=== PATIENT | female | born 1990 | race Caucasian/White ===

== ENCOUNTER 2019-01-05 09:44 | Emergency (ER) | payer OTHER ==
--- NOTE | 2019-01-05 09:48 | ERPHSYRPT ---
- History of Present Illness Time Seen by Provider: 01/05/19 09:48 Historian: patient Exam Limitations: no limitations Physician History: 28 y/o obese, diabetic white female who has had a cholecystectomy in past presents with generalized abd pain for over one month. she has recently seen a rotor plate washer who has scheduled pt for an upper endoscopy 01/18/19. pt has chronic nausea and occasional loose stools. no vaginal bleeding or abnl discharge. no rectal bleeding. Activities at Onset: none Quality: dullness, pressure Abdominal Pain Onset Location: generalized abdomen Pain Radiation: no radiation Severity of Pain-Max: mild Severity of Pain-Current: mild Modifying Factors: Improves With: nothing Associated Symptoms: nausea Previous symptoms: same symptoms as today, recently seen, recently treated Allergies/Adverse Reactions: No Known Drug Allergies Allergy (Verified 01/05/19 10:09) Home Medications: Metformin HCl 500 mg [Glucophage 500 MG] 500 mg PO BIDWM 01/05/19 [History ] Hx Tetanus, Diphtheria Vaccination/Date Given: Yes Hx Influenza Vaccination/Date Given: No Hx Pneumococcal Vaccination/Date Given: No - Review of Systems Constitutional: No Symptoms Eyes: No Symptoms Ears, Nose, & Throat: No Symptoms Respiratory: No Symptoms Cardiac: No Symptoms Abdominal/Gastrointestinal: Abdominal Pain, Nausea, No Vomiting, No Diarrhea Genitourinary Symptoms: No Symptoms Musculoskeletal: No Symptoms Skin: No Symptoms Neurological: No Symptoms Psychological: No Symptoms Endocrine: No Symptoms Hematologic/Lymphatic: No Symptoms Immunological/Allergic: No Symptoms All Other Systems: Reviewed and Negative - Past Medical History Pertinent Past Medical History: No ENT History: No Pertinent History Cardiac History: No Pertinent History Respiratory History: No Pertinent History Endocrine Medical History: No Pertinent History Musculoskeletal History: No Pertinent History GI Medical History: No Pertinent History History: No Pertinent History Psycho-Social History: No Pertinent History Female Reproductive Disorders: No Pertinent History - Past Surgical History Past Surgical History: Yes Neuro Surgical History: No Pertinent History Cardiac: No Pertinent History Respiratory: No Pertinent History Gastrointestinal: Cholecystectomy Genitourinary: No Pertinent History Musculoskeletal: No Pertinent History Female Surgical History: No Pertinent History Other Surgical History: CHOLECYSTECTOMY ON 04/21 - Social History Smoking Status: Never smoker Exposure to second hand smoke: Yes Drug Use: none Patient Lives Alone: Yes - Nursing Vital Signs Nursing Vital Signs: Initial Vital Signs Temperature 97.8 F 01/05/19 09:56 Pulse Rate 106 H 01/05/19 09:56 Respiratory Rate 16 01/05/19 09:56 Blood Pressure 134/87 01/05/19 09:56 O2 Sat by Pulse Oximetry 95 01/05/19 09:56 Pain Scale Pain Intensity 8 - Physical Exam General Appearance: no apparent distress, alert, anxiety Eye Exam: PERRL/EOMI Ears, Nose, Throat Exam: normal ENT inspection, moist mucous membranes Neck Exam: normal inspection, non-tender, supple, full range of motion Respiratory Exam: normal breath sounds, lungs clear, airway intact, No chest tenderness, No respiratory distress Cardiovascular Exam: regular rate/rhythm, normal heart sounds, normal peripheral pulses Gastrointestinal/Abdomen Exam: soft, normal bowel sounds, tenderness (mild generalized), No distention, No guarding, No rebound Pelvic Exam: not done Rectal Exam: not done Back Exam: normal inspection, normal range of motion, No CVA tenderness, No vertebral tenderness Extremity Exam: normal inspection, normal range of motion, pelvis stable Neurologic Exam: alert, oriented x 3, cooperative, social sciences professor II-XII nml as tested Skin Exam: normal color, warm, dry Lymphatic Exam: No adenopathy SpO2 Interpretation: normal O2 Delivery: Room Air - Course Nursing assessment & vital signs reviewed: Yes Ordered Tests: Active Orders 24 hr Category Date Time Status IV Insertion STAT Care 01/05/19 10:30 Active AMYLASE Stat Lab 01/05/19 10:40 Completed CBC W DIFF Stat Lab 01/05/19 10:40 Completed CMP Stat Lab 01/05/19 10:40 Completed HCG,QUALITATIVE URINE Stat Lab 01/05/19 10:49 Completed LIPASE Stat Lab 01/05/19 10:40 Completed Lactic Acid Stat Lab 01/05/19 10:40 Completed UA W/RFX UR CULTURE Stat Lab 01/05/19 10:49 Completed Medication Summary Discontinued Medications Generic Name Dose Route Start Last Admin Trade Name Freq PRN Reason Stop Dose Admin Ondansetron HCl 4 mg 01/05/19 10:30 01/05/19 10:52 Zofran 4 Mg/2 Ml Vial IV 01/05/19 10:31 4 mg STAT ONE Administration Ondansetron HCl Confirm 01/05/19 10:50 Zofran 4 Mg/2 Ml Vial Administered 01/05/19 10:51 Dose 4 mg .ROUTE .STK-MED ONE Lab/Rad Data: Laboratory Result Diagrams 01/05/19 10:40 01/05/19 10:40 Laboratory Results 01/05/19 01/05/19 01/05/19 Range/Units 10:49 10:49 10:40 WBC (4.0-10.5) K/mm3 RBC (4.1-5.4) M/mm3 Hgb (12.0-16.0) gm/dl Hct (35-47) % MCV (78-100) fl MCH (26-32) pg MCHC (32-36) g/dl RDW (11.5-14.0) % Plt Count (150-450) K/mm3 MPV (6-9.5) fl Gran % (36.0-66.0) % Eos # (Auto) (0-0.5) Absolute Lymphs (auto) (1.0-4.6) Absolute Monos (auto) (0.0-1.3) Lymphocytes % (24.0-44.0) % Monocytes % (0.0-12.0) % Eosinophils % (0.00-5.0) % Basophils % (0.0-0.4) % Absolute Granulocytes (1.4-6.9) Basophils # (0-0.4) Sodium 138 (137-145) mmol/L Potassium 4.3 (3.5-5.1) mmol/L Chloride 106 (98-107) mmol/L Carbon Dioxide 26 (22-30) mmol/L Anion Gap 11.1 (5-15) MEQ/L BUN 12 (7-17) mg/dL Creatinine 0.80 (0.52-1.04) mg/dL Estimated GFR > 60.0 ML/MIN Glucose 88 (74-106) mg/dL Lactic Acid (0.4-2.0) Calcium 8.9 (8.4-10.2) mg/dL Total Bilirubin 0.40 (0.2-1.3) mg/dL AST 35 (14-36) U/L ALT 21 (0-35) U/L Alkaline Phosphatase 47 (38-126) U/L Serum Total Protein 6.6 (6.3-8.2) g/dL Albumin 3.5 (3.5-5.0) g/dL Amylase 71 (30-110) U/L Lipase 66 (23-300) U/L Urine Color YELLOW (YELLOW) Urine Appearance TURBID (CLEAR) Urine pH 5.0 (5-6) Ur Specific [place] 1.027 (1.005-1.025) Urine Protein NEGATIVE (Negative) Urine Ketones NEGATIVE (NEGATIVE) Urine Blood SMALL (0-5) Salomon/ul Urine Nitrite NEGATIVE (NEGATIVE) Urine Bilirubin NEGATIVE (NEGATIVE) Urine Urobilinogen NEGATIVE (0-1) mg/dL Ur Leukocyte Esterase NEGATIVE (NEGATIVE) Urine WBC (Auto) 6-10 (0-5) /HPF Urine RBC (Auto) 3-5 (0-2) /HPF U Epithel Cells (Auto) RARE (FEW) /HPF Urine Bacteria (Auto) FEW (NEGATIVE) /HPF Urine Mucus (Auto) MODERATE (NEGATIVE) /HPF Urine Culture Reflexed NO (NO) Urine Glucose NEGATIVE (NEGATIVE) mg/dL Urine HCG, Qual NEGATIVE (Negative) 01/05/19 01/05/19 Range/Units 10:40 10:40 WBC 8.8 (4.0-10.5) K/mm3 RBC 4.37 (4.1-5.4) M/mm3 Hgb 13.0 (12.0-16.0) gm/dl Hct 39.3 (35-47) % MCV 89.9 (78-100) fl MCH 29.7 (26-32) pg MCHC 33.1 (32-36) g/dl RDW 12.4 (11.5-14.0) % Plt Count 235 (150-450) K/mm3 MPV 10.3 H (6-9.5) fl Gran % 63.3 (36.0-66.0) % Eos # (Auto) 0.08 (0-0.5) Absolute Lymphs (auto) 2.42 (1.0-4.6) Absolute Monos (auto) 0.71 (0.0-1.3) Lymphocytes % 27.5 (24.0-44.0) % Monocytes % 8.1 (0.0-12.0) % Eosinophils % 0.9 (0.00-5.0) % Basophils % 0.2 (0.0-0.4) % Absolute Granulocytes 5.56 (1.4-6.9) Basophils # 0.02 (0-0.4) Sodium (137-145) mmol/L Potassium (3.5-5.1) mmol/L Chloride (98-107) mmol/L Carbon Dioxide (22-30) mmol/L Anion Gap (5-15) MEQ/L BUN (7-17) mg/dL Creatinine (0.52-1.04) mg/dL Estimated GFR ML/MIN Glucose (74-106) mg/dL Lactic Acid 0.7 (0.4-2.0) Calcium (8.4-10.2) mg/dL Total Bilirubin (0.2-1.3) mg/dL AST (14-36) U/L ALT (0-35) U/L Alkaline Phosphatase (38-126) U/L Serum Total Protein (6.3-8.2) g/dL Albumin (3.5-5.0) g/dL Amylase (30-110) U/L Lipase (23-300) U/L Urine Color (YELLOW) Urine Appearance (CLEAR) Urine pH (5-6) Ur Specific [place] (1.005-1.025) Urine Protein (Negative) Urine Ketones (NEGATIVE) Urine Blood (0-5) Salomon/ul Urine Nitrite (NEGATIVE) Urine Bilirubin (NEGATIVE) Urine Urobilinogen (0-1) mg/dL Ur Leukocyte Esterase (NEGATIVE) Urine WBC (Auto) (0-5) /HPF Urine RBC (Auto) (0-2) /HPF U Epithel Cells (Auto) (FEW) /HPF Urine Bacteria (Auto) (NEGATIVE) /HPF Urine Mucus (Auto) (NEGATIVE) /HPF Urine Culture Reflexed (NO) Urine Glucose (NEGATIVE) mg/dL Urine HCG, Qual (Negative) - Progress Progress: unchanged Counseled pt/family regarding: lab results, diagnosis, need for follow-up - Departure Departure Disposition: Home Clinical Impression: Abdominal pain Condition: Stable Critical Care Time: No Referrals: MADDY SHAH NP [Primary Care Provider] - Additional Instructions: follow up with primary doctor for further management. keep your gastroenterology appointment
[2019-01-05] MEDS ORDERED: Zofran 4 MG/2 ML VIAL IV ONE (10:30)
[2019-01-05] MEDS ORDERED: Zofran 4 MG/2 ML VIAL ONE (10:50)
[2019-01-05 10:58] LABS: BASOPHIL % 0.2 % (0.0-0.4); Basophil (Absolute #) 0.02 (0-0.4); Eosinophil % 0.9 % (0.00-5.0); Eosinophil (Absolute #) 0.08 (0-0.5); Granulocyte Absolute (ANC) 5.56 (1.4-6.9); Granulocytes % 63.3 % (36.0-66.0); Hematocrit 39.3 % (35-47); Lymphocyte (Absolute #) 2.42 (1.0-4.6); Lymphocytes % 27.5 % (24.0-44.0); Mean Cell Volume 89.9 fl (78-100); Mean Corpuscular Hemoglobin 29.7 pg (26-32); Mean Corpuscular Hgb Concent. 33.1 g/dl (32-36); Mean Platelet Volume 10.3 fl (6-9.5); Monocyte (Absolute #) 0.71 (0.0-1.3); Monocytes % 8.1 % (0.0-12.0); Platelet Count 235 K/mm3 (150-450); Red Blood Count 4.37 M/mm3 (4.1-5.4); Red Cell Distribution Width 12.4 % (11.5-14.0); White Blood Count 8.8 K/mm3 (4.0-10.5)
[2019-01-05 10:59] LABS: Appearance TURBID (CLEAR); Bacteria FEW /HPF (NEGATIVE); Bilirubin NEGATIVE (NEGATIVE); Blood SMALL Ery/ul (0-5); Epithelial Cells RARE /HPF (FEW); Glucose NEGATIVE (NEGATIVE); Ketones NEGATIVE (NEGATIVE); Leukocyte Esterase NEGATIVE (NEGATIVE); Mucus MODERATE /HPF (NEGATIVE); Nitrite NEGATIVE (NEGATIVE); Protein,Urine Dip NEGATIVE (Negative); Specific Gravity 1.027 (1.005-1.025); Urobilinogen NEGATIVE mg/dL (0-1)
[2019-01-05 11:06] LABS: ALBUMIN 3.5 g/dL (3.5-5.0); ALKALINE PHOSPHATASE 47 U/L (38-126); AMYLASE 71 U/L (30-110); ANION GAP 11.1 MEQ/L (5-15); BLOOD UREA NITROGEN 12 mg/dL (7-17); CHLORIDE 106 mmol/L (98-107); Calcium 8.9 mg/dL (8.4-10.2); Carbon Dioxide 26 mmol/L (22-30); Glucose 88 mg/dL (74-106); LIPASE 66 U/L (23-300); Potassium 4.3 mmol/L (3.5-5.1); SGOT/AST 35 U/L (14-36); SGPT/ALT 21 U/L (0-35); SODIUM 138 mmol/L (137-145); Total Protein 6.6 g/dL (6.3-8.2)
[2019-01-05 11:44] VITALS: BP 131/82; PULSE 101; O2SAT 97
== END 2019-01-05 11:43 | disposition home or self-care (01) ==
LOC: ED 09:44
DX: R10.9 Unspecified abdominal pain (principal)
CPT/HCPCS: 36000; 36415; 80053; 81001; 82150; 83605; 83690; 84703; 85025; 96374; 99284; J2405

== ENCOUNTER 2019-10-12 20:33 | Emergency (ER) | payer OTHER ==
--- NOTE | 2019-10-12 21:13 | ERPHSYRPT ---
- History of Present Illness Time Seen by Provider: 10/12/19 21:00 Source: patient Exam Limitations: no limitations Patient Subjective Stated Complaint: Patient has 2 red dime size raised areas to left forearm. Triage Nursing Assessment: . Physician History: Patient is a 28-year-old female presents to our ED with concerns of an insect bite to the volar aspect of her left forearm. Patient awoke this morning to find 2 dime size on her left arm. At the center of the welt is a spot that appears to be a bite adryan. It is unclear whether she was bitten by an insect however patient believes that it may have been a spider. Patient has minimal pain. However the area is raised erythematous and tender to palpation. No other injuries reported. No fever. Timing/Duration: today Quality: other Severity: mild Possible Causes: insect bite Allergies/Adverse Reactions: No Known Drug Allergies Allergy (Verified 10/12/19 21:08) Home Medications: Metformin HCl 500 mg [Glucophage 500 MG] 500 mg PO BIDWM 01/05/19 [History ] Hx Tetanus, Diphtheria Vaccination/Date Given: No Hx Influenza Vaccination/Date Given: Yes Hx Pneumococcal Vaccination/Date Given: No Immunizations Up to Date: Yes - Review of Systems Constitutional: No Fever, No Chills Eyes: No Symptoms Ears, Nose, & Throat: No Symptoms Respiratory: No Cough, No Dyspnea Cardiac: No Chest Pain, No Edema, No Syncope Abdominal/Gastrointestinal: No Abdominal Pain, No Nausea, No Vomiting, No Diarrhea Genitourinary Symptoms: No Dysuria Musculoskeletal: No Back Pain, No Neck Pain Skin: Cellulitis, Induration, No Rash Neurological: No Dizziness, No Focal Weakness, No Sensory Changes Psychological: No Symptoms Endocrine: No Symptoms All Other Systems: Reviewed and Negative - Past Medical History Pertinent Past Medical History: No Neurological History: No Pertinent History ENT History: No Pertinent History Cardiac History: No Pertinent History Respiratory History: No Pertinent History Endocrine Medical History: No Pertinent History Musculoskeletal History: No Pertinent History GI Medical History: No Pertinent History History: No Pertinent History Psycho-Social History: No Pertinent History Female Reproductive Disorders: No Pertinent History - Past Surgical History Past Surgical History: Yes Neuro Surgical History: No Pertinent History Cardiac: No Pertinent History Respiratory: No Pertinent History Gastrointestinal: Cholecystectomy Genitourinary: No Pertinent History Musculoskeletal: No Pertinent History Female Surgical History: No Pertinent History Other Surgical History: CHOLECYSTECTOMY ON 04/21 - Social History Smoking Status: Never smoker Exposure to second hand smoke: No Drug Use: none Patient Lives Alone: No - Female History Hx Now: No - Nursing Vital Signs Nursing Vital Signs: Initial Vital Signs Temperature 96.5 F 10/12/19 20:58 Pulse Rate 93 H 10/12/19 20:58 Respiratory Rate 16 10/12/19 20:58 Blood Pressure 138/76 10/12/19 20:58 O2 Sat by Pulse Oximetry 95 10/12/19 20:58 Pain Scale Pain Intensity 4 - Physical Exam General Appearance: no apparent distress, alert Eye Exam: PERRL/EOMI, eyes nml inspection Ears, Nose, Throat Exam: normal ENT inspection, pharynx normal, moist mucous membranes Neck Exam: normal inspection, non-tender, supple, full range of motion Respiratory Exam: normal breath sounds, lungs clear, No respiratory distress Cardiovascular Exam: regular rate/rhythm, normal heart sounds Gastrointestinal/Abdomen Exam: soft, mass, No tenderness Back Exam: normal inspection, normal range of motion, No CVA tenderness, No vertebral tenderness Extremity Exam: normal inspection, normal range of motion Neurologic Exam: alert, oriented x 3, cooperative, normal mood/affect, sensation nml, No motor deficits Skin Exam: normal color, warm, dry, other (Patient has 2 dime size indurated raised tender lesions that are warm to touch. No associated lymphangitis. No axillary lymphadenopathy. No drainage. The extremity is neurovascular intact distally. Compartments are soft.) SpO2 Interpretation: normal SpO2: 95 O2 Delivery: Room Air - Progress Progress: improved Progress Note: 10/12/19 21:28 Wound was cleaned. Bactrim DS prescribed and transmitted to patient's pharmacy of choice. Counseled pt/family regarding: diagnosis, need for follow-up - Departure Departure Disposition: Home Clinical Impression: Insect bite, Cellulitis Condition: Good Critical Care Time: No Referrals: MADDY SHAH NP [Primary Care Provider] - Instructions: Animal Bites (DC), Insect Bites and Stings (DC) Additional Instructions: Discharge/Care Plan JOANNE WOOD was seen on 10/12/19 in the Emergency Room. The patient was counseled regarding Diagnosis,Lab results, Imaging studies, need for follow up and when to return to the Emergency Room. Prescriptions given: Discharge Note I have spoken with the patient and/or caregivers. I have explained the patient' s condition, diagnosis and treatment plan based on the information available to me at this time. I have answered the patient's and/or caregiver's questions and addressed any concerns. The patient and/or caregivers have as good understanding of the patient's diagnosis, condition and treatment plan as can be expected at this point. The vital signs have been stable. The patient's condition is stable and appropriate for discharge from the emergency department. The patient will pursue further outpatient evaluation with the primary care physician or other designated or consulting physician as outlined in the discharge instructions. The patient and/or caregivers are agreeable to this plan of care and follow-up instructions have been explained in detail. The patient and/or caregivers have received these instruction. The patient/and or caregivers are aware that any significant change in condition or worsening of symptoms should prompt an immediate return to this or the closest emergency department or call 911. Prescriptions: Smz/Tmp Ds Tablet [Bactrim Ds Tablet] 1 udtab PO BID #14 tablet
[2019-10-12 21:33] VITALS: BP 122/73; PULSE 67; O2SAT 99
== END 2019-10-12 21:33 | disposition home or self-care (01) ==
LOC: ED 20:33
DX: S50.862A Insect bite (nonvenomous) of left forearm, initial encounter (principal); L03.114 Cellulitis of left upper limb; W57.XXXA Bitten or stung by nonvenomous insect and other nonvenomous arthropods, initial encounter
CPT/HCPCS: 99283

== ENCOUNTER 2020-05-21 07:21 | Day surgery (SDC) | payer OTHER ==
[2020-05-21] MEDS ORDERED: Lactated Ringers 1,000 ML IV ONE ×2 (07:44→08:11)
[2020-05-21] MEDS ORDERED: CEFAZOLIN 2 GM-D5W BAG** 2 GM/50 ML ML IV ONE (07:44)
[2020-05-21] MEDS ORDERED: Lactated Ringers 1,000 ML IV SCH (08:00)
[2020-05-21] MEDS ORDERED: CEFAZOLIN 2 GM-D5W BAG** 2 GM/50 ML ML IV SCH (08:00)
[2020-05-21] MEDS ORDERED: Sensorcaine 0.25% 10 ML ONE (08:11)
[2020-05-21] MEDS ORDERED: Zemuron 100 MG/10 ML ONE (08:26)
[2020-05-21] MEDS ORDERED: SUBLIMAZE 100 MCG/2 ML ONE ×2 (08:26→10:55)
[2020-05-21] MEDS ORDERED: Versed 2 MG/2 ML Injection ONE (08:26)
[2020-05-21] MEDS ORDERED: DIPRIVAN 200 MG/20 ML IV ONE (08:26)
[2020-05-21] MEDS ORDERED: Zofran 4 MG/2 ML VIAL ONE (10:10)
[2020-05-21] MEDS ORDERED: BRIDION 200MG/2ML IV ONE (10:12)
[2020-05-21] MEDS ORDERED: Compazine 10 MG/2 ML ONE (10:38)
[2020-05-21] MEDS ORDERED: TORAdol 30 mg Injection ONE (10:50)
[2020-05-21 12:17] VITALS: BP 110/60; PULSE 72; O2SAT 98
[2020-05-21 15:17] LABS: Appearance CLEAR (CLEAR); Bilirubin NEGATIVE (NEGATIVE); Blood SMALL Ery/ul (0-5); Epithelial Cells RARE /HPF (FEW); Glucose NEGATIVE (NEGATIVE); Ketones NEGATIVE (NEGATIVE); Leukocyte Esterase NEGATIVE (NEGATIVE); Mucus SLIGHT /HPF (NEGATIVE); Nitrite NEGATIVE (NEGATIVE); Protein,Urine Dip NEGATIVE (Negative); Specific Gravity 1.019 (1.005-1.025); Urobilinogen NEGATIVE mg/dL (0-1)
--- NOTE | 2020-05-22 08:12 | OP ---
SURGERY DATE/TIME: 05/21/2020 7839 PREOPERATIVE DIAGNOSES: 1) Multiparity desiring tubal sterilization. 2) Retained intrauterine device. POSTOPERATIVE DIAGNOSES: 1) Multiparity desiring tubal sterilization. 2) Retained intrauterine device. PROCEDURES: 1) Removal of intrauterine device, Mirena. 2) Laparoscopic tubal sterilization via Falope ring application. SURGEON: Chris Acevedo D.O. LAND CONSERVATION SPECIALIST: Doretha Kenny Homicide Detective. ANESTHESIA: General. ESTIMATED BLOOD LOSS: Minimal. COMPLICATIONS: None. INDICATIONS: The risks, benefits, indications and alternatives of the procedure were reviewed with the patient prior to procedure. The patient understood the risk of infection, bleeding, bowel injury, bladder injury, ureteral injury, uterine perforation as well as pelvic infection, thrombophilia disorder that may be associated with this procedure however desires to have this procedure as a possible means to alleviate her current medical condition. All other forms of control were discussed with the patient prior to the procedure. However, she declines any other form of control and desires to have permanent sterilization. DESCRIPTION OF PROCEDURE AND FINDINGS: From this point the patient is taken to the operating room, given general sedation, placed in a dorsal lithotomy position. Prepped and draped in the usual sterile fashion. A weighted speculum is then placed in the patient's vagina and the anterior lip of the cervix was grasped with a single tooth tenaculum. From this point ring forceps was used to grasp the Mirena string which was and removed without complication. The uterine manipulator was then introduced in through the endocervical canal as means to manipulate the uterus. Attention was then turned to the patient's abdomen where a 5 mm skin incision was made approximately 2 cm above the umbilical fold where a 5 mm trocar and sleeve were advanced under direct visualization. Pneumoperitoneum was placed with 4 liters of CO2 gas. From this point an additional incision was made 2 cm above the symphysis pubis where an 8 mm trocar and sleeve were advanced under direct visualization as well. The visualization in the pelvic region appeared to be within normal limits with no gross abnormalities that were noted. From this point the uterus was then elevated with the uterine manipulator and Falope ring applicator was then applied to the left fallopian tube approximately 3 to 4 cm away from the cornual region where the Falope ring was then grasped and the Falope ring applicator was applied and the ring was placed on the fallopian tube without complication. However there was minimal bleeding that was noted after grasping the tube. However, the ring was placed in excellent position. From this point the Falope ring applicator was reloaded and the same procedure was performed on the right fallopian tube on the isthmic region where it was grasped and the ring was placed on the tube in excellent position. Bipolar bone puller was used to coagulate the minimal bleeding that was on the left tube and was done so without complication. There were no gross abnormalities located within the abdominal region and all instruments were then removed from the patient's abdominal region. The gas was removed. The incisions were closed with 4-0 Monocryl suture. The patient was then taken out of the dorsal lithotomy position, was taken out of anesthesia and was then taken to the recovery room in stable condition. All instruments and laps were accounted for x2.
== END 2020-05-21 12:15 | disposition home or self-care (01) ==
LOC: SDC 07:21
PROVIDERS: ATTEND Obstetrics & Gynecology
DX: Z30.2 Encounter for sterilization (principal); Z30.432 Encounter for removal of intrauterine contraceptive device; E11.9 Type 2 diabetes mellitus without complications; I10 Essential (primary) hypertension; Z79.899 Other long term (current) drug therapy
CPT/HCPCS: 58301; 58671; 81001; 82962; 84703; 87086; J0690; J1885; J2250; J2405; J2704; J3010

== ENCOUNTER 2022-06-30 07:25 | Day surgery (SDC) | payer OTHER ==
[2022-06-30] MEDS ORDERED: Lactated Ringers 1,000 ML IV SCH (08:00)
[2022-06-30] MEDS ORDERED: Lactated Ringers 1,000 ML IV ONE (08:15)
[2022-06-30] MEDS ORDERED: CEFAZOLIN 2 GM-D5W BAG** 2 GM/50 ML ML IV SCH (08:30)
[2022-06-30] MEDS ORDERED: Xylocaine-Mpf 2% 5 Ml Vial ONE (10:16)
[2022-06-30] MEDS ORDERED: Decadron 4 MG INJ ONE (10:16)
[2022-06-30] MEDS ORDERED: DIPRIVAN 200 MG/20 ML IV ONE (10:16)
[2022-06-30] MEDS ORDERED: Zofran 4 MG/2 ML VIAL ONE (10:16)
[2022-06-30] MEDS ORDERED: Versed 2 MG/2 ML Injection ONE (10:16)
[2022-06-30] MEDS ORDERED: SUBLIMAZE 100 MCG/2 ML ONE (10:16)
[2022-06-30 11:57] VITALS: BP 125/94; PULSE 79; O2SAT 99
--- NOTE | 2022-07-01 08:32 | OP ---
SURGERY DATE/TIME: 06/30/2022 1020 PREOPERATIVE DIAGNOSIS: Menorrhagia. POSTOPERATIVE DIAGNOSIS: Menorrhagia. PROCEDURE: Hysteroscopy D&C with NovaSure ablation. SURGEON: Chris Acevedo D.O. ENERGY SALES BROKER: Ledy Akhtar surgical aide. ANESTHESIA: General. ESTIMATED BLOOD LOSS: Minimal. COMPLICATIONS: None. INDICATIONS: The risks, benefits, indications and alternatives of the procedure were reviewed with the patient prior to procedure. The patient understood the risk of infection, bleeding, bowel injury, bladder injury, ureteral injury, uterine perforation, pelvic infection, thromboembolic disorder associated with the surgery and desires to have this surgery as a possible means to alleviate her current medical condition. DESCRIPTION OF PROCEDURE AND FINDINGS: At this point the patient is taken to the operating room, given general sedation, placed in dorsal lithotomy position, prepped and draped in the usual sterile fashion. A weighted speculum is then placed in the patient's vagina and the anterior lip of the cervix grasped with a single tooth tenaculum. Endocervical dilators were advanced through the endocervical canal as a means to dilate the cervix. The uterus was sounded to approximately 8 cm. From this point, a 5 mm hysteroscope was then placed into the fundus of the uterus where visualization of the endometrial lining appeared to be within normal limits with no gross abnormalities that were noted. From this point, the hysteroscope was removed. The curette was then placed into the fundus of the uterus and curettage was performed in all quadrants of the uterus retrieving a mild to moderate amount of tissue. From this point, the curette was then removed. The NovaSure was then introduced through the endocervical canal where it was taken towards the fundal region, retracted approximately 1 cm with a length of 6 cm and a width was engaged at 3.2 cm. After complete engagement, the machine was turned on for an ablative time of 42 seconds. After complete ablation, the NovaSure instrument was then disengaged and was removed from the uterine cavity without complication. From this point, all instruments were removed from the patient's vaginal region. The patient was then taken out of the dorsal lithotomy position, was then taken out of anesthesia and was then taken to the recovery room in stable condition. All instruments and laps were accounted for x2.
== END 2022-06-30 12:01 | disposition home or self-care (01) ==
LOC: SDC 07:25
PROVIDERS: ATTEND Obstetrics & Gynecology
DX: N92.0 Excessive and frequent menstruation with regular cycle (principal); R73.03 Prediabetes
CPT/HCPCS: 81025; 82947; J0690; J1100; J2250; J2405; J2704; J3010

== ENCOUNTER 2023-03-23 09:04 | Observation (INO) | payer OTHER ==
[2023-03-23] MEDS ORDERED: CEFAZOLIN 2 GM-D5W BAG** 2 GM/50 ML ML IV SCH (09:30)
[2023-03-23] MEDS ORDERED: CEFAZOLIN 2 GM-D5W BAG** 2 GM/50 ML ML IV ONE (09:43)
[2023-03-23] MEDS ORDERED: Lactated Ringers 1,000 ML IV ONE ×3 (09:43→13:12)
[2023-03-23] MEDS ORDERED: Lactated Ringers 1,000 ML IV SCH (10:00)
[2023-03-23 10:31] LABS: Hematocrit 38.4 % (35-47); Hemoglobin 12.6 g/dL (12.0-16.0); Mean Cell Volume 91.6 fL (78-100); Mean Corpuscular Hemoglobin 30.1 pg (26-32); Mean Corpuscular Hgb Concent. 32.8 g/dL (32-36); Mean Platelet Volume 10.3 fL (7.5-11.0); Platelet Count 244 x10^3/uL (150-450); Red Blood Count 4.19 x10^6/uL (4.1-5.4); White Blood Count 7.5 x10^3/uL (4.0-10.5)
[2023-03-23 10:47] LABS: ALBUMIN 3.8 g/dL (3.5-5.0); ALKALINE PHOSPHATASE 58 U/L (38-126); ANION GAP 13.2 MEQ/L (5-15); BLOOD UREA NITROGEN 16 mg/dL (7-17); CHLORIDE 105 mmol/L (98-107); Calcium 8.8 mg/dL (8.4-10.2); Carbon Dioxide 24 mmol/L (22-30); Creatinine 1 0.77 mg/dL (0.52-1.04); EST GLOMERULAR FILTRATION RATE > 60.0 ML/MIN; Glucose 81 mg/dL (74-106); Potassium 4.3 mmol/L (3.5-5.1); SGOT/AST 24 U/L (14-36); SGPT/ALT 19 U/L (0-35); SODIUM 138 mmol/L (137-145); Total Protein 7.2 g/dL (6.3-8.2)
[2023-03-23] MEDS ORDERED: SUBLIMAZE 100 MCG/2 ML ONE (10:59)
[2023-03-23] MEDS ORDERED: Zemuron 100 MG/10 ML ONE (10:59)
[2023-03-23] MEDS ORDERED: DIPRIVAN 200 MG/20 ML IV ONE (10:59)
[2023-03-23] MEDS ORDERED: Versed 2 MG/2 ML Injection ONE (10:59)
[2023-03-23 11:14] LABS: ABO TYPING B; Antibody Screen NEGATIVE (NEGATIVE); RH TYPING POSITIVE
[2023-03-23] MEDS ORDERED: Sensorcaine 0.25% 10 ML ONE (11:18)
[2023-03-23] MEDS ORDERED: Astramorph-Pf 5 MG/10 ML ONE (11:23)
[2023-03-23 11:30] LABS: HCG SERUM TEST NEGATIVE (NEGATIVE)
[2023-03-23] MEDS ORDERED: Decadron 4 MG INJ ONE (12:22)
[2023-03-23] MEDS ORDERED: PHENYLEPHRINE HCL ONE (12:48)
[2023-03-23] MEDS ORDERED: Marcaine 0.5%/Epinephrine 10 ML ONE ×2 (12:59)
[2023-03-23] MEDS ORDERED: TORAdol 30 mg Injection ONE (13:01)
[2023-03-23] MEDS ORDERED: BRIDION 200MG/2ML IV ONE (13:01)
[2023-03-23] MEDS ORDERED: Zofran 4 MG/2 ML VIAL ONE (13:01)
[2023-03-23 14:46] LABS: Appearance Clear (Clear); Bacteria None Seen /HPF (None Seen); Bilirubin Negative (Negative); Blood Negative (Negative); Epithelial Cells Rare /HPF (None Seen); Glucose, Urine Negative (Negative); Hyaline Casts NONE SEEN /LPF (0-2); Ketones Trace (Negative); Leukocyte Esterase Negative (Negative); Nitrite Negative (Negative); Ph 7.5 (4.6-8.0); Protein,Urine Dip Negative (Negative); RBC 0-2 /HPF (0-5); Urobilinogen 0.2 mg/dL (0.2); WBC 0-2 /HPF (0-5)
[2023-03-23] MEDS ORDERED: Zofran 4 MG/2 ML VIAL IV PRN ×2 (15:05→15:15)
[2023-03-23] MEDS ORDERED: TORAdol 30 mg Injection IV PRN (15:07)
[2023-03-23] MEDS ORDERED: MORPHINE SULFATE 2 MG INJ IV PRN (15:15)
[2023-03-23] MEDS ORDERED: CLARITIN 10 MG PO PRN (15:15)
[2023-03-23] MEDS ORDERED: Narcan 0.4 MG/ML IV PRN (15:15)
[2023-03-23] MEDS ORDERED: DEMEROL 50 MG IV PRN (15:15)
[2023-03-23] MEDS ORDERED: Nubain 10 MG/ML IV PRN (15:15)
[2023-03-23] MEDS ORDERED: NON-FORMULARY ITEM (Tirzepatide [Mounjaro] 5 MG/0.5 ML Pen.Injctr) SQ SCH (15:15)
[2023-03-23] MEDS ORDERED: PERCOCET TABLET 5/325MG PO PRN (15:15)
[2023-03-23] MEDS ORDERED: Sodium Chloride 0.9% 10 ML FLUSH Syringe IJ PRN (15:15)
[2023-03-23] MEDS ORDERED: BENADRYL 50 MG/ML IV PRN (15:15)
[2023-03-23] MEDS ORDERED: MEDICATION INTERVENTION MC SCH (15:30)
[2023-03-23] MEDS: Prozac 20 MG PO SCH (16:40)
[2023-03-23] MEDS: Reglan 10 MG/2 ML IV SCH ×2 (16:40→21:13)
[2023-03-23] MEDS: Mylicon 80MG PO SCH ×2 (16:40→21:12)
[2023-03-23] MEDS: Lactated Ringers 1,000 ML IV SCH (18:12)
[2023-03-23] MEDS: CEFAZOLIN 2 GM-D5W BAG** 2 GM/50 ML ML IV SCH (18:12)
[2023-03-23 18:31] LABS: Hemoglobin 12.3 g/dL (12.0-16.0); Mean Cell Volume 93.1 fL (78-100); Mean Corpuscular Hemoglobin 30.1 pg (26-32); Mean Corpuscular Hgb Concent. 32.4 g/dL (32-36); Mean Platelet Volume 9.8 fL (7.5-11.0); Platelet Count 232 x10^3/uL (150-450); Red Blood Count 4.08 x10^6/uL (4.1-5.4); Red Cell Distribution Width 11.9 % (11.5-14.0); White Blood Count 15.6 x10^3/uL (4.0-10.5)
[2023-03-23] MEDS: Docusate Sodium 100 MG PO SCH (21:13)
[2023-03-24] MEDS: Lactated Ringers 1,000 ML IV SCH (01:22)
[2023-03-24] MEDS: CEFAZOLIN 2 GM-D5W BAG** 2 GM/50 ML ML IV SCH (01:23)
[2023-03-24 04:53] LABS: Hematocrit 36.8 % (35-47); Hemoglobin 11.8 g/dL (12.0-16.0); Mean Cell Volume 94.4 fL (78-100); Mean Corpuscular Hemoglobin 30.3 pg (26-32); Mean Corpuscular Hgb Concent. 32.1 g/dL (32-36); Mean Platelet Volume 10.3 fL (7.5-11.0); Platelet Count 244 x10^3/uL (150-450); Red Cell Distribution Width 12.1 % (11.5-14.0); White Blood Count 16.7 x10^3/uL (4.0-10.5)
[2023-03-24 04:54] LABS: ALBUMIN 3.5 g/dL (3.5-5.0); ALKALINE PHOSPHATASE 70 U/L (38-126); ANION GAP 9.5 MEQ/L (5-15); BLOOD UREA NITROGEN 16 mg/dL (7-17); CHLORIDE 105 mmol/L (98-107); Calcium 8.6 mg/dL (8.4-10.2); Carbon Dioxide 27 mmol/L (22-30); EST GLOMERULAR FILTRATION RATE > 60.0 ML/MIN; Glucose 107 mg/dL (74-106); Potassium 4.3 mmol/L (3.5-5.1); SGOT/AST 25 U/L (14-36); SGPT/ALT 19 U/L (0-35); SODIUM 137 mmol/L (137-145)
[2023-03-24] MEDS: Reglan 10 MG/2 ML IV SCH (05:40)
[2023-03-24] MEDS: Mylicon 80MG PO SCH (05:40)
[2023-03-24 07:21] VITALS: BP 111/56; PULSE 87; RESP 16; TEMP 98.1; O2SAT 96
--- NOTE | 2023-03-24 07:31 | PCM.NOTE ---
Date and Time: 03/24/23728 Subjective Assessment: pod 1 sp laparoscopic supracervical hysterectomy pt resting in bed however states able to ambulate and tolerate diet with minimal discomfort. vss afebrile abd; soft incision c/d/intact ext; no clubbing cyanosis or edema hgb; 11.8 a/p sp laparoscopic supracervical hysterctomy dc home today should fu in office in 2 wks OBJECTIVE DATA Vital Signs: Vital Signs - 24 hr Temp Pulse Resp BP Pulse Ox 03/24/23 07:20 98.1 F 87 16 111/56 96 03/24/23 03:51 97.7 F 76 17 111/78 93 L 03/24/23 00:00 97.7 F 76 18 107/65 95 03/23/23 20:00 98.1 F 73 17 112/63 95 03/23/23 16:00 97.5 F 93 H 18 134/71 95 03/23/23 14:48 102 H 18 126/77 99 03/23/23 14:30 97.0 F 94 H 18 119/75 93 L 03/23/23 10:16 97.3 F 87 16 120/86 99 03/23/23 09:44 97.3 F 87 16 120/86 99 Pain Assessment - Last Documented Pain Intensity 0 Intake and Output: Intake & Output 03/21/23 03/22/23 03/23/23 03/24/23 11:59 11:59 11:59 11:59 Intake Total 995 Output Total 1150 Balance -155 Weight 92.5 kg 94.7 kg Lab Results: Lab Results-Last 24 Hours 03/23/23 03/23/23 03/23/23 Range/Units 09:58 09:58 09:58 WBC 7.5 (4.0-10.5) x10^3/uL RBC 4.19 (4.1-5.4) x10^6/uL Hgb 12.6 (12.0-16.0) g/dL Hct 38.4 (35-47) % MCV 91.6 (78-100) fL MCH 30.1 (26-32) pg MCHC 32.8 (32-36) g/dL RDW 12.0 (11.5-14.0) % Plt Count 244 (150-450) x10^3/uL MPV 10.3 (7.5-11.0) fL Sodium 138 (137-145) mmol/L Potassium 4.3 (3.5-5.1) mmol/L Chloride 105 (98-107) mmol/L Carbon Dioxide 24 (22-30) mmol/L Anion Gap 13.2 (5-15) MEQ/L BUN 16 (7-17) mg/dL Creatinine 0.77 (0.52-1.04) mg/dL Estimated GFR > 60.0 ML/MIN Glucose 81 (74-106) mg/dL Calcium 8.8 (8.4-10.2) mg/dL Total Bilirubin 0.50 (0.2-1.3) mg/dL AST 24 (14-36) U/L ALT 19 (0-35) U/L Alkaline Phosphatase 58 (38-126) U/L Serum Total Protein 7.2 (6.3-8.2) g/dL Albumin 3.8 (3.5-5.0) g/dL Serum HCG, Qual (NEGATIVE) Urine Color (Yellow) Urine Appearance (Clear) Urine pH (4.6-8.0) Ur Specific [place] (1.005-1.030) Urine Protein (Negative) Urine Glucose (UA) (Negative) mg/dL Urine Ketones (Negative) Urine Blood (Negative) Urine Nitrite (Negative) Urine Bilirubin (Negative) Urine Urobilinogen (0.2) mg/dL Ur Leukocyte Esterase (Negative) U Hyaline Cast (Auto) (0-2) /LPF Urine Microscopic RBC (0-5) /HPF Urine Microscopic WBC (0-5) /HPF Ur Epithelial Cells (None Seen) /HPF Urine Bacteria (None Seen) /HPF ABO Group B Rh Factor POSITIVE Antibody Screen NEGATIVE (NEGATIVE) 03/23/23 03/23/23 03/23/23 Range/Units 09:58 12:21 18:29 WBC 15.6 H (4.0-10.5) x10^3/uL RBC 4.08 L (4.1-5.4) x10^6/uL Hgb 12.3 (12.0-16.0) g/dL Hct 38.0 (35-47) % MCV 93.1 (78-100) fL MCH 30.1 (26-32) pg MCHC 32.4 (32-36) g/dL RDW 11.9 (11.5-14.0) % Plt Count 232 (150-450) x10^3/uL MPV 9.8 (7.5-11.0) fL Sodium (137-145) mmol/L Potassium (3.5-5.1) mmol/L Chloride (98-107) mmol/L Carbon Dioxide (22-30) mmol/L Anion Gap (5-15) MEQ/L BUN (7-17) mg/dL Creatinine (0.52-1.04) mg/dL Estimated GFR ML/MIN Glucose (74-106) mg/dL Calcium (8.4-10.2) mg/dL Total Bilirubin (0.2-1.3) mg/dL AST (14-36) U/L ALT (0-35) U/L Alkaline Phosphatase (38-126) U/L Serum Total Protein (6.3-8.2) g/dL Albumin (3.5-5.0) g/dL Serum HCG, Qual NEGATIVE (NEGATIVE) Urine Color Yellow (Yellow) Urine Appearance Clear (Clear) Urine pH 7.5 (4.6-8.0) Ur Specific [place] 1.020 (1.005-1.030) Urine Protein Negative (Negative) Urine Glucose (UA) Negative (Negative) mg/dL Urine Ketones Trace A (Negative) Urine Blood Negative (Negative) Urine Nitrite Negative (Negative) Urine Bilirubin Negative (Negative) Urine Urobilinogen 0.2 (0.2) mg/dL Ur Leukocyte Esterase Negative (Negative) U Hyaline Cast (Auto) NONE SEEN (0-2) /LPF Urine Microscopic RBC 0-2 (0-5) /HPF Urine Microscopic WBC 0-2 (0-5) /HPF Ur Epithelial Cells Rare (None Seen) /HPF Urine Bacteria None Seen (None Seen) /HPF ABO Group Rh Factor Antibody Screen (NEGATIVE) 03/24/23 03/24/23 Range/Units 04:11 04:11 WBC 16.7 H (4.0-10.5) x10^3/uL RBC 3.90 L (4.1-5.4) x10^6/uL Hgb 11.8 L (12.0-16.0) g/dL Hct 36.8 (35-47) % MCV 94.4 (78-100) fL MCH 30.3 (26-32) pg MCHC 32.1 (32-36) g/dL RDW 12.1 (11.5-14.0) % Plt Count 244 (150-450) x10^3/uL MPV 10.3 (7.5-11.0) fL Sodium 137 (137-145) mmol/L Potassium 4.3 (3.5-5.1) mmol/L Chloride 105 (98-107) mmol/L Carbon Dioxide 27 (22-30) mmol/L Anion Gap 9.5 (5-15) MEQ/L BUN 16 (7-17) mg/dL Creatinine 0.90 (0.52-1.04) mg/dL Estimated GFR > 60.0 ML/MIN Glucose 107 H (74-106) mg/dL Calcium 8.6 (8.4-10.2) mg/dL Total Bilirubin 0.20 (0.2-1.3) mg/dL AST 25 (14-36) U/L ALT 19 (0-35) U/L Alkaline Phosphatase 70 (38-126) U/L Serum Total Protein 7.0 (6.3-8.2) g/dL Albumin 3.5 (3.5-5.0) g/dL Serum HCG, Qual (NEGATIVE) Urine Color (Yellow) Urine Appearance (Clear) Urine pH (4.6-8.0) Ur Specific [place] (1.005-1.030) Urine Protein (Negative) Urine Glucose (UA) (Negative) mg/dL Urine Ketones (Negative) Urine Blood (Negative) Urine Nitrite (Negative) Urine Bilirubin (Negative) Urine Urobilinogen (0.2) mg/dL Ur Leukocyte Esterase (Negative) U Hyaline Cast (Auto) (0-2) /LPF Urine Microscopic RBC (0-5) /HPF Urine Microscopic WBC (0-5) /HPF Ur Epithelial Cells (None Seen) /HPF Urine Bacteria (None Seen) /HPF ABO Group Rh Factor Antibody Screen (NEGATIVE) Multi-Disciplinary Progress Notes: Multi-Disciplinary Progress Notes 03/23/23 18:53 Respiratory Note by Kinjal Mckeon PT REFUSING CPAP WHILE HERE. SHE IS AWARE THAT SHE MAY CALL AT ANYTIME IF SHE CHANGES HER MIND. Initialized on 03/23/23 18:53 - END OF NOTE 03/23/23 15:29 Pharmacy Note by Jeferson Granda Please be aware of possible drug interaction with Prozac and Reglan. May increase risk of extrapyramidal symptoms. Initialized on 03/23/23 15:29 - END OF NOTE Assessment/Plan (1) S/P laparoscopic supracervical hysterectomy Current Visit: Yes Status: Acute Code(s): Z90.711 - ACQUIRED ABSENCE OF UTERUS WITH REMAINING CERVICAL STUMP
--- NOTE | 2023-03-24 07:36 | PCM.DS ---
Discharge Summary Date of Admission: 03/23/23 14:15 Admitting Physician: REINALDO FORDE DO Primary Care Provider: MADDY SHAH Allergies Allergies No Known Drug Allergies Allergy (Verified 03/23/23 15:16) Hospital Summary - Hospital Course Hospital Course: pt admitted on march 23 for undergoing laparoscopic supracervical hysterectomy for abnormal uterine bleeding with failed ablation and underwent procedure without issue. during postop period did well and able to ambulate and tolerate diet. pt at this time will go home on percocet for pain management and prophylaxis antibiotic therapy and was advised to fu in office in 2 wks for postop check. all questions answered to her satisfaction. - Vitals & Intake/Output Vital Signs: Vital Signs Temperature 98.1 F 03/24/23 07:20 Pulse Rate 87 03/24/23 07:20 Respiratory Rate 16 03/24/23 07:20 Blood Pressure 111/56 03/24/23 07:20 O2 Sat by Pulse Oximetry 96 03/24/23 07:20 Intake & Output: Intake & Output 03/21/23 03/22/23 03/23/23 03/24/23 11:59 11:59 11:59 11:59 Intake Total 995 Output Total 1150 Balance -155 Weight 92.5 kg 94.7 kg - Lab Result Diagrams: 03/24/23 04:11 03/24/23 04:11 Lab Results-Last 24 Hrs: Lab Results-Last 24 Hours 03/23/23 03/23/23 03/23/23 Range/Units 09:58 09:58 09:58 WBC 7.5 (4.0-10.5) x10^3/uL RBC 4.19 (4.1-5.4) x10^6/uL Hgb 12.6 (12.0-16.0) g/dL Hct 38.4 (35-47) % MCV 91.6 (78-100) fL MCH 30.1 (26-32) pg MCHC 32.8 (32-36) g/dL RDW 12.0 (11.5-14.0) % Plt Count 244 (150-450) x10^3/uL MPV 10.3 (7.5-11.0) fL Sodium 138 (137-145) mmol/L Potassium 4.3 (3.5-5.1) mmol/L Chloride 105 (98-107) mmol/L Carbon Dioxide 24 (22-30) mmol/L Anion Gap 13.2 (5-15) MEQ/L BUN 16 (7-17) mg/dL Creatinine 0.77 (0.52-1.04) mg/dL Estimated GFR > 60.0 ML/MIN Glucose 81 (74-106) mg/dL Calcium 8.8 (8.4-10.2) mg/dL Total Bilirubin 0.50 (0.2-1.3) mg/dL AST 24 (14-36) U/L ALT 19 (0-35) U/L Alkaline Phosphatase 58 (38-126) U/L Serum Total Protein 7.2 (6.3-8.2) g/dL Albumin 3.8 (3.5-5.0) g/dL Serum HCG, Qual (NEGATIVE) Urine Color (Yellow) Urine Appearance (Clear) Urine pH (4.6-8.0) Ur Specific [place] (1.005-1.030) Urine Protein (Negative) Urine Glucose (UA) (Negative) mg/dL Urine Ketones (Negative) Urine Blood (Negative) Urine Nitrite (Negative) Urine Bilirubin (Negative) Urine Urobilinogen (0.2) mg/dL Ur Leukocyte Esterase (Negative) U Hyaline Cast (Auto) (0-2) /LPF Urine Microscopic RBC (0-5) /HPF Urine Microscopic WBC (0-5) /HPF Ur Epithelial Cells (None Seen) /HPF Urine Bacteria (None Seen) /HPF ABO Group B Rh Factor POSITIVE Antibody Screen NEGATIVE (NEGATIVE) 03/23/23 03/23/23 03/23/23 Range/Units 09:58 12:21 18:29 WBC 15.6 H (4.0-10.5) x10^3/uL RBC 4.08 L (4.1-5.4) x10^6/uL Hgb 12.3 (12.0-16.0) g/dL Hct 38.0 (35-47) % MCV 93.1 (78-100) fL MCH 30.1 (26-32) pg MCHC 32.4 (32-36) g/dL RDW 11.9 (11.5-14.0) % Plt Count 232 (150-450) x10^3/uL MPV 9.8 (7.5-11.0) fL Sodium (137-145) mmol/L Potassium (3.5-5.1) mmol/L Chloride (98-107) mmol/L Carbon Dioxide (22-30) mmol/L Anion Gap (5-15) MEQ/L BUN (7-17) mg/dL Creatinine (0.52-1.04) mg/dL Estimated GFR ML/MIN Glucose (74-106) mg/dL Calcium (8.4-10.2) mg/dL Total Bilirubin (0.2-1.3) mg/dL AST (14-36) U/L ALT (0-35) U/L Alkaline Phosphatase (38-126) U/L Serum Total Protein (6.3-8.2) g/dL Albumin (3.5-5.0) g/dL Serum HCG, Qual NEGATIVE (NEGATIVE) Urine Color Yellow (Yellow) Urine Appearance Clear (Clear) Urine pH 7.5 (4.6-8.0) Ur Specific [place] 1.020 (1.005-1.030) Urine Protein Negative (Negative) Urine Glucose (UA) Negative (Negative) mg/dL Urine Ketones Trace A (Negative) Urine Blood Negative (Negative) Urine Nitrite Negative (Negative) Urine Bilirubin Negative (Negative) Urine Urobilinogen 0.2 (0.2) mg/dL Ur Leukocyte Esterase Negative (Negative) U Hyaline Cast (Auto) NONE SEEN (0-2) /LPF Urine Microscopic RBC 0-2 (0-5) /HPF Urine Microscopic WBC 0-2 (0-5) /HPF Ur Epithelial Cells Rare (None Seen) /HPF Urine Bacteria None Seen (None Seen) /HPF ABO Group Rh Factor Antibody Screen (NEGATIVE) 03/24/23 03/24/23 Range/Units 04:11 04:11 WBC 16.7 H (4.0-10.5) x10^3/uL RBC 3.90 L (4.1-5.4) x10^6/uL Hgb 11.8 L (12.0-16.0) g/dL Hct 36.8 (35-47) % MCV 94.4 (78-100) fL MCH 30.3 (26-32) pg MCHC 32.1 (32-36) g/dL RDW 12.1 (11.5-14.0) % Plt Count 244 (150-450) x10^3/uL MPV 10.3 (7.5-11.0) fL Sodium 137 (137-145) mmol/L Potassium 4.3 (3.5-5.1) mmol/L Chloride 105 (98-107) mmol/L Carbon Dioxide 27 (22-30) mmol/L Anion Gap 9.5 (5-15) MEQ/L BUN 16 (7-17) mg/dL Creatinine 0.90 (0.52-1.04) mg/dL Estimated GFR > 60.0 ML/MIN Glucose 107 H (74-106) mg/dL Calcium 8.6 (8.4-10.2) mg/dL Total Bilirubin 0.20 (0.2-1.3) mg/dL AST 25 (14-36) U/L ALT 19 (0-35) U/L Alkaline Phosphatase 70 (38-126) U/L Serum Total Protein 7.0 (6.3-8.2) g/dL Albumin 3.5 (3.5-5.0) g/dL Serum HCG, Qual (NEGATIVE) Urine Color (Yellow) Urine Appearance (Clear) Urine pH (4.6-8.0) Ur Specific [place] (1.005-1.030) Urine Protein (Negative) Urine Glucose (UA) (Negative) mg/dL Urine Ketones (Negative) Urine Blood (Negative) Urine Nitrite (Negative) Urine Bilirubin (Negative) Urine Urobilinogen (0.2) mg/dL Ur Leukocyte Esterase (Negative) U Hyaline Cast (Auto) (0-2) /LPF Urine Microscopic RBC (0-5) /HPF Urine Microscopic WBC (0-5) /HPF Ur Epithelial Cells (None Seen) /HPF Urine Bacteria (None Seen) /HPF ABO Group Rh Factor Antibody Screen (NEGATIVE) Micro Results-Entire Visit: Microbiology 03/23/23 12:21 Urine Culture - Preliminary Catherized NO GROWTH TO DATE Final Diagnosis/Problem List - Final Discharge Diagnosis/Problem (1) S/P laparoscopic supracervical hysterectomy Current Visit: Yes Status: Acute Code(s): Z90.711 - ACQUIRED ABSENCE OF UTERUS WITH REMAINING CERVICAL STUMP - Discharge Disposition: Home, Self-Care Condition: Stable Prescriptions: New levoFLOXacin [Levofloxacin] 500 mg PO DAILY #5 tablet Oxycodone HCl/Acetaminophen [Percocet 5-325 mg Tablet] 1 each PO Q6HPRN PRN #20 tablet MDD 4 PRN Reason: Pain No Action Fluoxetine HCl 20 mg [Prozac 20 MG] 60 mg PO DAILY Tirzepatide [Mounjaro] 5 mg SQ WEEKLY Follow up with: MADDY SHAH NP [Primary Care Provider] - REINALDO FORDE DO [ACTIVE STAFF] - 2 weeks (should fu in office in 2 wks should call me for any issues that may arise at anytime no driving for a week no intercourse for 6 wks no heavy lifting)
[2023-03-24] MEDS: Prozac 20 MG PO SCH (09:04)
[2023-03-24] MEDS: Docusate Sodium 100 MG PO SCH (09:05)
--- NOTE | 2023-03-24 09:20 | OP ---
SURGERY DATE/TIME: 03/23/2023 1143 PREOPERATIVE DIAGNOSIS: Abnormal uterine bleeding with failed ablation. POSTOPERATIVE DIAGNOSIS: Abnormal uterine bleeding with failed ablation. PROCEDURE: Laparoscopic supracervical hysterectomy. SURGEON: Chris Acevedo D.O. SHOW JUMPING INSTRUCTOR: Ledy Akhtar instrument and controls technician. ANESTHESIA: General. ESTIMATED BLOOD LOSS: Minimal. COMPLICATIONS: None. INDICATIONS: The risks, benefits, indications and alternatives of the procedure were reviewed with the patient prior to procedure. The patient understood the risk of infection, bleeding, bowel injury, bladder injury, ureteral injury, uterine perforation, pelvic infection and thromboembolic disorder associated with this surgery and desires to have this procedure as a possible means to alleviate her current medical condition. DESCRIPTION OF PROCEDURE AND FINDINGS: At this point the patient is taken to the operating room given general sedation, placed in the dorsal lithotomy position, prepped and draped in the usual sterile fashion. A weighted speculum is then placed in the patient's vagina and the anterior lip of the cervix was grasped with a single tooth tenaculum. The uterine manipulator is then placed in through the endocervical canal as a means to manipulate the uterus. Attention was then turned to the patient's abdomen where a 5 mm skin incision is made approximately 1 cm above the umbilicus where a 5 mm trocar and sleeve were advanced under direct visualization where pneumoperitoneum was obtained with 4 liters of CO2 gas. An additional incision is made in the left middle quadrant region where 5 mm trocar and sleeve were advanced under direct visualization and an additional incision was made in the right middle quadrant region where a 5 mm incision was made. At this point the uterus was elevated and LigaSure was used to clamp, coagulate and cut the left utero-ovarian ligament and was taken down to the round ligament towards the uterine vasculature. At this point a bladder flap was developed and the uterine vasculature was clamped, coagulated and cut in three contiguous regions. The same procedure was performed on the right side where the right utero-ovarian ligament where it was clamped, coagulated, cut and taken down to the round ligament towards the uterine vasculature where it too was dissected, clamped, coagulated and cut in three contiguous regions and hemostasis obtained while developing a bladder flap on its side. From this point the uterus was elevated and a small 2.5 cm incision was made 2 cm above the symphysis pubis and extended to the rectus sheath and entered. An Gildardo retractor was placed and from this point the uterus is elevated, the SupraLoop was introduced and across the juncture of the uterus and the cervix and was amputated from its cervical stump region without complication. Hemostasis was obtained. The uterus is lifted with the Gildardo retractor and manual extraction without complication. After complete removal of the uterus with manual morcellation the Gildardo retractor was removed and the fascia was closed with 0 Vicryl suture. The skin was closed with irene called INSORB. From this point, another survey of the patient's pelvis was within normal limits and there was no bleeding that was noted. From this point all instruments were then removed from the patient's abdominal region and the incisions were closed with 4-0 Monocryl suture. From this point, the patient is then taken out of anesthesia and was taken out of the dorsal lithotomy position, was taken out of anesthesia and was then taken to recovery room in stable condition. All instruments, laps were accounted for x2.
[2023-03-24] MEDS ORDERED: ENOXAPARIN SODIUM SQ SCH (10:00)
[2023-03-24] MEDS ORDERED: HOLD NARCOTIC ANALGESICS AND SEDATIVES X24 HR MC SCH (10:00)
== END 2023-03-24 10:30 | disposition home or self-care (01) ==
LOC: SDC 09:04 → MED SURG 14:15
PROVIDERS: ADMIT Obstetrics & Gynecology; ATTEND Obstetrics & Gynecology
DX: N93.9 Abnormal uterine and vaginal bleeding, unspecified (principal)
CPT/HCPCS: 36415; 80053; 81001; 84703; 85027; 86850; 86900; 86901; 87086; J0690; J1100; J1650; J1885; J2250; J2274; J2370; J2405; J2704; J3010; A9270-GY

== ENCOUNTER 2023-06-26 00:59 | Emergency (ER) | payer OTHER ==
[2023-06-26 01:30] VITALS: TEMP 96.8
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
[2023-06-26 01:55] LABS: Absolute Neutrophil Ct (ANC) 6.95 x10^3/uL (1.4-6.9); BASOPHIL % 0.8 % (0.0-0.4); Basophil (Absolute #) 0.08 x10^3/uL (0-0.4); Eosinophil % 0.9 % (0.00-5.0); Hematocrit 37.8 % (35-47); Hemoglobin 12.3 g/dL (12.0-16.0); IMMATURE GRAN # 0.04 x10^3u/L (0.00-0.03); IMMATURE GRAN % 0.4 % (0.00-0.4); Lymphocyte (Absolute #) 2.48 x10^3/uL (1.0-4.6); Lymphocytes % 23.4 % (24.0-44.0); Mean Cell Volume 92.4 fL (78-100); Mean Corpuscular Hemoglobin 30.1 pg (26-32); Mean Corpuscular Hgb Concent. 32.5 g/dL (32-36); Monocyte (Absolute #) 0.93 x10^3/uL (0.0-1.3); Monocytes % 8.8 % (0.0-12.0); Neutrophil % 65.7 % (36.0-66.0); Platelet Count 278 x10^3/uL (150-450); Red Blood Count 4.09 x10^6/uL (4.1-5.4); White Blood Count 10.6 x10^3/uL (4.0-10.5)
[2023-06-26 01:58] LABS: HCG URINE TEST NEGATIVE (NEGATIVE)
[2023-06-26 02:02] LABS: Appearance Turbid (Clear); Bacteria Few /HPF (None Seen); Bilirubin Negative (Negative); Blood Trace (Negative); Epithelial Cells Moderate /HPF (None Seen); Glucose, Urine Negative (Negative); Hyaline Casts NONE SEEN /LPF (0-2); Ketones Negative (Negative); Leukocyte Esterase Trace (Negative); Nitrite Negative (Negative); Protein,Urine Dip Negative (Negative); RBC 0-2 /HPF (0-5)
[2023-06-26 02:07] LABS: ADD URINE CULTURE? YES (NO)
[2023-06-26 02:08] LABS: ACETAMINOPHEN < 10 ug/ml (10-30); ALBUMIN 4.2 g/dL (3.5-5.0); ALKALINE PHOSPHATASE 88 U/L (38-126); ANION GAP 11.3 MEQ/L (5-15); BLOOD UREA NITROGEN 14 mg/dL (7-17); CHLORIDE 105 mmol/L (98-107); Carbon Dioxide 26 mmol/L (22-30); Creatinine 1 0.88 mg/dL (0.52-1.04); EST GLOMERULAR FILTRATION RATE > 60.0 ML/MIN; ETHYL ALCOHOL < 10 mg/dL (0-10); Glucose 107 mg/dL (74-106); Potassium 3.6 mmol/L (3.5-5.1); SALICYLATE < 1.0 mg/dL (2-20); SGOT/AST 30 U/L (14-36); SGPT/ALT 29 U/L (0-35); SODIUM 139 mmol/L (137-145); Total Protein 7.6 g/dL (6.3-8.2)
[2023-06-26 02:14] LABS: Amphetamine,Urine NEGATIVE (NEGATIVE); Barbiturate,Urine NEGATIVE (NEGATIVE); Benzodiazepine,Urine NEGATIVE (NEGATIVE); Cocaine,Urine NEGATIVE (NEGATIVE); Methadone,Urine NEGATIVE (NEGATIVE); Opiate,Urine NEGATIVE (NEGATIVE); PCP,Urine NEGATIVE (NEGATIVE); THC,Urine NEGATIVE (NEGATIVE)
[2023-06-26] MEDS ORDERED: KEFLEX 500 MG PO ONE (02:26)
[2023-06-26] MEDS ORDERED: KEFLEX 500 MG ONE (02:28)
[2023-06-26] MEDS ORDERED: MOTRIN 600 MG ONE (02:30)
[2023-06-26] MEDS ORDERED: MOTRIN 600 MG PO ONE (02:30)
[2023-06-26 03:31] LABS: INFLUENZA A NEGATIVE (NEGATIVE); INFLUENZA B NEGATIVE (NEGATIVE); RESPIRATORY SYNCTIAL VIRUS NEGATIVE (NEGATIVE); SARS-CoV-2 Xpert Express NEGATIVE (NEGATIVE)
[2023-06-26 05:12] VITALS: BP 107/80; PULSE 84; RESP 18; O2SAT 97
== END 2023-06-26 06:00 ==
LOC: ED 00:59
DX: N39.0 Urinary tract infection, site not specified (principal); F31.60 Bipolar disorder, current episode mixed, unspecified; F60.3 Borderline personality disorder; F41.9 Anxiety disorder, unspecified; Z91.51 Personal history of suicidal behavior
CPT/HCPCS: 0241U; 36415; 80053; 80143; 80179; 80307; 81001; 81025; 82077; 85025; 87086; 93005; 99284; A9270-GY

== ENCOUNTER 2024-06-10 14:07 | Emergency (ER) | payer OTHER ==
[2024-06-10 14:12] VITALS: TEMP 97.8
--- NOTE | 2024-06-10 14:28 | ERPHSYRPT ---
- History of Present Illness Time Seen by Provider: 06/10/24 14:28 Historian: patient Exam Limitations: no limitations Patient Subjective Stated Complaint: Pt c/o of medial chest pain and pain to the left mid lateral side that radiates downward for the past 2-3 days Triage Nursing Assessment: Pt brought self to the ER, hypertensive, rates pain as 6/10, states that pain comes and goes, nausea, pulses normal, skin n/w/d, no difficulties with breathing, doesn't appear to be in any distress Physician History: For 3 days the patient's been having some chest pain. Discussed substernal and epigastric. She says it radiates into her back and down into her posterior flanks. Nothing really makes the symptoms better or worse. She says it comes and goes its intermittent it happens about 3 times a day it last for about 30 minutes. She says there is always a constant dull pain there but it becomes more sharp. She has not had any nausea vomiting. She does not have a strong set of risk factors for coronary disease. She is hypertensive.Nothing seems to make the symptoms better or worse. There is no association with eating or anything like that. Allergies/Adverse Reactions: No Known Drug Allergies Allergy (Verified 06/10/24 14:19) Home Medications: Brexpiprazole [Rexulti] 1 mg PO DAILY 06/10/24 [History] Buspirone HCl 15 mg PO TID 06/10/24 [History] Desvenlafaxine Succinate [Desvenlafaxine Succinate ER] 100 mg PO DAILY 06/10/24 [History] Lisinopril 5 mg [Zestril 5 MG] 5 mg PO DAILY 06/10/24 [History] Ramelteon [Rozerem] 8 mg PO DAILY 06/10/24 [History] Hx Tetanus, Diphtheria Vaccination/Date Given: No Hx Influenza Vaccination/Date Given: Yes Hx Pneumococcal Vaccination/Date Given: No Travel Risk - International Travel Have you traveled outside of the country in past 3 weeks: No - Emerging Infectious Disease Are you exhibiting symptoms associated with any current EIDs: No - Review of Systems Constitutional: No Symptoms Eyes: No Symptoms Ears, Nose, & Throat: No Symptoms Respiratory: No Symptoms Cardiac: No Symptoms Genitourinary Symptoms: No Symptoms Musculoskeletal: No Symptoms Neurological: No Symptoms - Past Medical History Pertinent Past Medical History: Yes Neurological History: No Pertinent History ENT History: No Pertinent History Cardiac History: No Pertinent History Respiratory History: Sleep Apnea Endocrine Medical History: No Pertinent History Musculoskeletal History: No Pertinent History GI Medical History: No Pertinent History History: No Pertinent History Psycho-Social History: Anxiety, Bipolar, Depression Female Reproductive Disorders: Abnormal Uterine Bleeding, Menstrual Problems Other Medical History: . - Past Surgical History Past Surgical History: Yes Neuro Surgical History: No Pertinent History Cardiac: No Pertinent History Respiratory: No Pertinent History Gastrointestinal: Cholecystectomy Genitourinary: No Pertinent History Musculoskeletal: No Pertinent History Female Surgical History: Hysterectomy, Tubal Ligation Other Surgical History: uterine ablation 2021. LAPARASCOPIC SUPRACERVICAL HYSTERECTOMY 2022 - Female History Hx Last Menstrual Period: HAS IUD Hx Now: No (hysterectomy) - Social History Smoking Status: Former smoker How long have you smoked: 12 yrs Exposure to second hand smoke: No Drug Use: none Patient Lives Alone: No - Social Determinants of Health Will the patient participate in the screening: Yes Do you worry about a steady place to live?: No Do you have any problems with any of the following?: No known problems In the past 12 months,have you had to go without utilities?: No Transportation Issues: No Has anyone in your support network made you feel unsafe?: No Have you or anyone in your house had to go without enough: No - Nursing Vital Signs Nursing Vital Signs: Initial Vital Signs Temperature 97.8 F 06/10/24 14:11 Pulse Rate 98 H 06/10/24 14:11 Respiratory Rate 16 06/10/24 14:11 Blood Pressure 145/86 06/10/24 14:11 O2 Sat by Pulse Oximetry 95 06/10/24 14:11 Pain Scale Pain Intensity 2 - Physical Exam General Appearance: no apparent distress Eye Exam: PERRL/EOMI Respiratory Exam: normal breath sounds, chest tenderness, lungs clear Cardiovascular Exam: regular rate/rhythm, normal heart sounds Gastrointestinal/Abdomen Exam: soft, normal bowel sounds Back Exam: normal inspection Extremity Exam: normal inspection Neurologic Exam: alert, oriented x 3, cooperative, 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 Skin Exam: normal color, warm, dry SpO2: 95 - Course Nursing assessment & vital signs reviewed: Yes EKG Interpreted by Me: RATE, Sinus Rhythm, NORMAL AXIS, NORMAL INTERVALS Ordered Tests: Active Orders 24 hr Category Date Time Status Buffer Automatic STAT Care 06/10/24 14:39 Active EKG-ER Only STAT Care 06/10/24 14:28 Active IV Insertion STAT Care 06/10/24 14:36 Active ABDOMEN AND PELVIS W CONTRAST [CT] Stat Exams 06/10/24 15:50 Completed CBC W DIFF Stat Lab 06/10/24 14:20 Completed CMP Stat Lab 06/10/24 14:20 Completed LIPASE Stat Lab 06/10/24 14:20 Completed TROPONIN Q4H Lab 06/10/24 14:20 Completed TROPONIN Q4H Lab 06/10/24 18:30 Ordered TROPONIN Q4H Lab 06/10/24 22:30 Ordered UA W/RFX UR CULTURE Stat Lab 06/10/24 14:43 Completed Medication Summary Discontinued Medications Generic Name Dose Route Start Last Admin Trade Name Freq PRN Reason Stop Dose Admin Hydrocodone Bitart/Acetaminophen 1 tab 06/10/24 15:37 06/10/24 15:41 Hydrocodone/Apap 5/325 1 Tab Tablet PO 06/10/24 15:38 1 tab STAT ONE Administration Hydrocodone Bitart/Acetaminophen Confirm 06/10/24 15:41 Hydrocodone/Apap 5/325 1 Tab Tablet Administered 06/10/24 15:42 Dose 1 tab .ROUTE [employer]-MED ONE Lab/Rad Data: Laboratory Result Diagrams 06/10/24 14:20 06/10/24 14:20 Laboratory Results 06/10/24 06/10/24 06/10/24 Range/Units 14:43 14:20 14:20 WBC (3.98-10.04) x10^3/uL RBC (3.93-5.22) x10^6/uL Hgb (11.2-15.7) g/dL Hct (34.1-44.9) % MCV (79.4-94.8) fL MCH (25.6-32.2) pg MCHC (32.2-35.5) g/dL RDW (11.7-14.4) % Plt Count (182-369) x10^3/uL MPV (9.4-12.3) fL Gran % (34.0-71.1) % Immature Gran % (Auto) (0.001-0.429) % Nucleat RBC Rel Count (0.00-0.2) % Eos # (Auto) (0.04-0.36) x10^3/uL Immature Gran # (Auto) (0.001-0.031) x10^3u/L Absolute Lymphs (auto) (1.18-3.74) x10^3/uL Absolute Monos (auto) (0.24-0.86) x10^3/uL Absolute Nucleated RBC (0.00-0.012) x10^3u/L Lymphocytes % (19.3-51.7) % Monocytes % (4.7-12.5) % Eosinophils % (0.7-5.8) % Basophils % (0.1-1.2) % Absolute Granulocytes (1.56-6.13) x10^3/uL Basophils # (0.01-0.08) x10^3/uL Sodium 140 (135-145) mmol/L Potassium 4.2 (3.5-5.1) mmol/L Chloride 106 (98-107) mmol/L Carbon Dioxide 21 L (22-30) mmol/L Anion Gap 16.8 H (5-15) MEQ/L BUN 17 (7-17) mg/dL Creatinine 0.86 (0.52-1.04) mg/dL Estimated GFR 90.3 ML/MIN Glucose 104 (74-106) mg/dL Calcium 9.1 (8.4-10.2) mg/dL Total Bilirubin 0.40 (0.2-1.3) mg/dL AST 32 (14-36) U/L ALT 30 (0-35) U/L Alkaline Phosphatase 96 (38-126) U/L Troponin I < 0.012 (0.000-0.033) ng/mL Serum Total Protein 7.2 (6.3-8.2) g/dL Albumin 4.0 (3.5-5.0) g/dL Lipase 225 (23-300) U/L Urine Color Yellow (Yellow) Urine Appearance Cloudy A (Clear) Urine pH 5.5 (4.6-8.0) Ur Specific [place] 1.025 (1.005-1.030) Urine Protein Negative (Negative) Urine Glucose (UA) Negative (Negative) mg/dL Urine Ketones Negative (Negative) Urine Blood Trace (Negative) Urine Nitrite Negative (Negative) Urine Bilirubin Negative (Negative) Urine Urobilinogen 0.2 (0.2) mg/dL Ur Leukocyte Esterase Negative (Negative) U Hyaline Cast (Auto) NONE SEEN (0-2) /LPF Urine Microscopic RBC 3-5 (0-5) /HPF Urine Microscopic WBC 3-5 (0-5) /HPF Ur Epithelial Cells Moderate A (None Seen) /HPF Urine Bacteria Few A (None Seen) /HPF Urine Culture Reflexed NO (NO) 06/10/24 Range/Units 14:20 WBC 8.0 (3.98-10.04) x10^3/uL RBC 4.10 (3.93-5.22) x10^6/uL Hgb 12.5 (11.2-15.7) g/dL Hct 36.3 (34.1-44.9) % MCV 88.5 (79.4-94.8) fL MCH 30.5 (25.6-32.2) pg MCHC 34.4 (32.2-35.5) g/dL RDW 11.6 L (11.7-14.4) % Plt Count 259 (182-369) x10^3/uL MPV 10.0 (9.4-12.3) fL Gran % 54.6 (34.0-71.1) % Immature Gran % (Auto) 0.6 H (0.001-0.429) % Nucleat RBC Rel Count 0.0 (0.00-0.2) % Eos # (Auto) 0.15 (0.04-0.36) x10^3/uL Immature Gran # (Auto) 0.05 H (0.001-0.031) x10^3u/L Absolute Lymphs (auto) 2.60 (1.18-3.74) x10^3/uL Absolute Monos (auto) 0.76 (0.24-0.86) x10^3/uL Absolute Nucleated RBC 0.00 (0.00-0.012) x10^3u/L Lymphocytes % 32.7 (19.3-51.7) % Monocytes % 9.6 (4.7-12.5) % Eosinophils % 1.9 (0.7-5.8) % Basophils % 0.6 (0.1-1.2) % Absolute Granulocytes 4.34 (1.56-6.13) x10^3/uL Basophils # 0.05 (0.01-0.08) x10^3/uL Sodium (135-145) mmol/L Potassium (3.5-5.1) mmol/L Chloride (98-107) mmol/L Carbon Dioxide (22-30) mmol/L Anion Gap (5-15) MEQ/L BUN (7-17) mg/dL Creatinine (0.52-1.04) mg/dL Estimated GFR ML/MIN Glucose (74-106) mg/dL Calcium (8.4-10.2) mg/dL Total Bilirubin (0.2-1.3) mg/dL AST (14-36) U/L ALT (0-35) U/L Alkaline Phosphatase (38-126) U/L Troponin I (0.000-0.033) ng/mL Serum Total Protein (6.3-8.2) g/dL Albumin (3.5-5.0) g/dL Lipase (23-300) U/L Urine Color (Yellow) Urine Appearance (Clear) Urine pH (4.6-8.0) Ur Specific [place] (1.005-1.030) Urine Protein (Negative) Urine Glucose (UA) (Negative) mg/dL Urine Ketones (Negative) Urine Blood (Negative) Urine Nitrite (Negative) Urine Bilirubin (Negative) Urine Urobilinogen (0.2) mg/dL Ur Leukocyte Esterase (Negative) U Hyaline Cast (Auto) (0-2) /LPF Urine Microscopic RBC (0-5) /HPF Urine Microscopic WBC (0-5) /HPF Ur Epithelial Cells (None Seen) /HPF Urine Bacteria (None Seen) /HPF Urine Culture Reflexed (NO) - Progress Progress: unchanged Progress Note: Patient was stable throughout stay. Her EKG Was normal and troponin were not elevated. I do not think is coming from cardiac. She seemed to have pain more in the left and right upper quadrant. I went ahead and got a CT of the abdomen. It was normal. Her lipase and liver function test were within normal limits. At this time I do not think she requires any further workup. She mainly just wanted make sure it was not her heart or anything serious. She is not having respiratory symptoms and her vital signs are stable. On the differential was cardiac event, Colitis, hepatitis,Musculoskeletal pain. All of her workup was negative. It could be just some sort of colitis going on. At this time she does not wish to have any pain medicine. I am going to discharge her to home and she can take Tylenol. 06/10/24 18:05 Medical Desision Making - Diagnostic Testing Diagnostic test were ordered, analyzed, and reviewed by me: Yes Radiological Interpretation: Interpreted by me - Risk of complications Minimal Risk: Minimal risk of morbidity - Departure Departure Disposition: Home Clinical Impression: Abdominal pain Condition: Stable Critical Care Time: No Referrals: MADDY SHAH NP [Primary Care Provider] - Follow up/PCP as directed Instructions: Abdominal pain
[2024-06-10 14:35] LABS: Absolute Neutrophil Ct (ANC) 4.34 x10^3/uL (1.56-6.13); BASOPHIL % 0.6 % (0.1-1.2); Basophil (Absolute #) 0.05 x10^3/uL (0.01-0.08); Eosinophil % 1.9 % (0.7-5.8); Eosinophil (Absolute #) 0.15 x10^3/uL (0.04-0.36); Hematocrit 36.3 % (34.1-44.9); Hemoglobin 12.5 g/dL (11.2-15.7); IMMATURE GRAN # 0.05 x10^3u/L (0.001-0.031); IMMATURE GRAN % 0.6 % (0.001-0.429); Lymphocytes % 32.7 % (19.3-51.7); Mean Cell Volume 88.5 fL (79.4-94.8); Mean Corpuscular Hemoglobin 30.5 pg (25.6-32.2); Mean Corpuscular Hgb Concent. 34.4 g/dL (32.2-35.5); Monocyte (Absolute #) 0.76 x10^3/uL (0.24-0.86); Monocytes % 9.6 % (4.7-12.5); Neutrophil % 54.6 % (34.0-71.1); Platelet Count 259 x10^3/uL (182-369); Red Cell Distribution Width 11.6 % (11.7-14.4)
[2024-06-10 14:44] LABS: ANION GAP 16.8 MEQ/L (5-15); BILIRUBIN,TOTAL 0.4 mg/dL (0.2-1.3); Calcium 9.1 mg/dL (8.4-10.2); Creatinine 1 0.86 mg/dL (0.52-1.04); EST GLOMERULAR FILTRATION RATE 90.3 ML/MIN; Potassium 4.2 mmol/L (3.5-5.1); Total Protein 7.2 g/dL (6.3-8.2)
[2024-06-10 14:59] LABS: Appearance Cloudy (Clear); Bacteria Few /HPF (None Seen); Bilirubin Negative (Negative); Blood Trace (Negative); Epithelial Cells Moderate /HPF (None Seen); Glucose, Urine Negative (Negative); Hyaline Casts NONE SEEN /LPF (0-2); Ketones Negative (Negative); Leukocyte Esterase Negative (Negative); Nitrite Negative (Negative); Ph 5.5 (4.6-8.0); Protein,Urine Dip Negative (Negative); Specific Gravity 1.025 (1.005-1.030); Urobilinogen 0.2 mg/dL (0.2)
[2024-06-10] MEDS: NORCO 5/325 MG PO ONE (15:41)
[2024-06-10] MEDS ORDERED: NORCO 5/325 MG ONE (15:41)
--- NOTE | 2024-06-10 17:59 | XRAY ---
CLINICAL HISTORY: Abdominal pain COMPARISON: None. TECHNIQUE: CT scan of the abdomen and pelvis with the intravenous administration of contrast 80 cc Isovue 370. One of the following dose reduction techniques was utilized for this exam: Automated exposure control, adjustment of the mA and/or kV according to patient size, and use of iterative reconstruction. FINDINGS: The liver is of average size, displaying regular contour and homogeneous texture. No diffuse parenchymal changes or focal lesions could be detected. Normal hepatic vascular pattern is noted with no evidence of vascular distortion, thrombotic venous occlusion, or compromise of the hepatic biliary drainage. Cholecystectomy surgical clips is noted. The spleen is of average size with no abnormal focal parenchymal attenuation or mirta splenic collection. Both kidneys are of average size, shape and parenchymal thickness with no evidence of stones, back pressure changes or space-occupying lesions. The other retroperitoneal structures including the pancreas, adrenal glands and great vessels are grossly within normal limits. No significant lymph mona enlargement or ascetic fluid collection. The uterus, both adnexa and ischiorectal fossae show normal CT appearance. Normal filling of the urinary bladder with no stones, masses, or diverticula. The appendix is not visualized however no fat stranding or collection is seen in the right iliac fossa. Bone window settings showed probable vertebral hemangiomas at T11 and L3. Lung window settings showed normal appearance of both basal lung segments. IMPRESSION: 1. Unremarkable contrast-enhanced CT scan examination of the abdomen and pelvis. 2. Probable vertebral hemangiomas at T11 and L3 vertebral bodies. Electronically Signed by: Teodoro Lopez MD. (06/10/2024 17:54:45 EDT)
[2024-06-10 18:07] VITALS: BP 101/65; PULSE 100; RESP 21
[2024-06-10 18:10] VITALS: O2SAT 95
== END 2024-06-10 18:17 | disposition home or self-care (01) ==
LOC: ED 14:07
DX: R10.11 Right upper quadrant pain (principal); R10.12 Left upper quadrant pain; R07.9 Chest pain, unspecified; Z79.899 Other long term (current) drug therapy
CPT/HCPCS: 36000; 36415; 74177; 80053; 81001; 83690; 84484; 85025; 93005; 93041; 99284; A9270-GY

== ENCOUNTER 2025-07-13 13:34 | Emergency (ER) | payer OTHER ==
--- NOTE | 2025-07-13 14:01 | ERPHSYRPT ---
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 As per protocol, the patient is here to obtain lab work. Patient has a history of hypertension, anxiety, bipolar disorder, migraine headache. Timing/Duration: today Severity: mild Associated Symptoms: denies symptoms Allergies/Adverse Reactions: No Known Drug Allergies Allergy (Verified 07/13/25 14:49) Home Medications: Brexpiprazole [Rexulti] 1 mg PO DAILY 06/10/24 [History] Buspirone HCl 15 mg PO TID 06/10/24 [History] Desvenlafaxine Succinate [Desvenlafaxine Succinate ER] 100 mg PO DAILY 06/10/24 [History] Lisinopril 5 mg [Zestril 5 MG] 10 mg PO DAILY 06/10/24 [History] Modafinil 100 mg [Provigil 100MG Tablet] 200 mg PO DAILY 07/13/25 [History] Hx Tetanus, Diphtheria Vaccination/Date Given: No Hx Influenza Vaccination/Date Given: Yes Hx Pneumococcal Vaccination/Date Given: No Travel Risk - International Travel Have you traveled outside of the country in past 3 weeks: No - Emerging Infectious Disease Are you exhibiting symptoms associated with any current EIDs: No - Review of Systems Constitutional: No Symptoms Eyes: No Symptoms Ears, Nose, & Throat: No Symptoms Respiratory: No Symptoms Cardiac: No Symptoms Abdominal/Gastrointestinal: No Symptoms Genitourinary Symptoms: No Symptoms Musculoskeletal: No Symptoms Skin: Other (Stick to the palmar aspect left thumb) Neurological: No Symptoms Psychological: No Symptoms Endocrine: No Symptoms Hematologic/Lymphatic: No Symptoms Immunological/Allergic: No Symptoms All Other Systems: Reviewed and Negative - Past Medical History Pertinent Past Medical History: Yes Neurological History: Migraines ENT History: No Pertinent History Cardiac History: Hypertension Respiratory History: No Pertinent History Endocrine Medical History: Other Musculoskeletal History: Other GI Medical History: No Pertinent History History: No Pertinent History Psycho-Social History: Anxiety, Bipolar, Depression Female Reproductive Disorders: Abnormal Uterine Bleeding, Menstrual Problems Other Medical History: Pre-Diabetic - Past Surgical History Past Surgical History: Yes Neuro Surgical History: No Pertinent History Cardiac: No Pertinent History Respiratory: No Pertinent History Gastrointestinal: Cholecystectomy Genitourinary: No Pertinent History Musculoskeletal: No Pertinent History Female Surgical History: Hysterectomy, Tubal Ligation Other Surgical History: uterine ablation 2021. LAPARASCOPIC SUPRACERVICAL HYSTERECTOMY 2022 - Female History Hx Last Menstrual Period: HAS IUD - Social History Smoking Status: Former smoker How long have you smoked: 12 yrs Exposure to second hand smoke: Yes Drug Use: none - Social Determinants of Health Will the patient participate in the screening: Yes Do you worry about a steady place to live?: No In the past 12 months,have you had to go without utilities?: No Transportation Issues: No Has anyone in your support network made you feel unsafe?: No Have you or anyone in your house had to go w/o enough food: No - Nursing Vital Signs Nursing Vital Signs: Initial Vital Signs Temperature 97.3 F 07/13/25 13:36 Pulse Rate 92 H 07/13/25 13:36 Respiratory Rate 16 07/13/25 13:36 Blood Pressure 145/95 07/13/25 13:36 O2 Sat by Pulse Oximetry 99 07/13/25 13:36 Pain Scale Pain Intensity 5 - Physical Exam General Appearance: no apparent distress, alert, obese Eye Exam: PERRL/EOMI, eyes nml inspection Ears, Nose, Throat Exam: normal ENT inspection, moist mucous membranes Neck Exam: normal inspection, non-tender, supple, full range of motion Respiratory Exam: airway intact, No chest tenderness, No respiratory distress Gastrointestinal/Abdomen Exam: No tenderness Pelvic Exam: not done Rectal Exam: not done Back Exam: normal inspection, normal range of motion, No CVA tenderness, No vertebral tenderness Extremity Exam: normal inspection, normal range of motion, pelvis stable Neurologic Exam: alert, oriented x 3, cooperative, 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 No active bleeding.) Lymphatic Exam: No adenopathy SpO2 Interpretation: normal O2 Delivery: Room Air - Course Nursing assessment & vital signs reviewed: Yes Ordered Tests: Active Orders 24 hr Category Date Time Status HIV RAPID-SOURCE PATIENT/OB Stat Lab 07/13/25 14:45 Completed - Progress Progress: unchanged Progress Note: 07/13/25 16:02 My medical decision making and the assignment of low complexity of this patient's medical issue today is based on review of the patient's past medical history, review the patient's medication list, reviewed patient drug allergy list, history present illness and physical findings on examination. The workup in this patient is based on our protocol. I had a discussion with this patient regarding medications as prophylaxis as well as the side effects of the medications. After full discussion with the patient, the patient opted not to take the medication. Therefore the lab results drawn based on our protocol. Patient believes that she stuck herself first and then proceeded to draw the patient's blood but she cannot be 100% certain Differential diagnosis includes but is not limited to needlestick exposure, abrasion of skin, contusion of skin 07/13/25 16:05 Counseled pt/family regarding: diagnosis, need for follow-up Medical Desision Making - Diagnostic Testing Diagnostic test were ordered, analyzed, and reviewed by me: Yes - Risk of complications Low Risk: Low risk of morbidity from additional dx testing or treatment - Departure Departure Disposition: Home Clinical Impression: Needlestick injury accident Condition: Stable Critical Care Time: No Referrals: MADDY SHAH NP [Primary Care Provider, [facility]] - Follow up/PCP as directed Instructions: How to dispose of needles and other sharps, Understanding lab test results Additional Instructions: Keep the site of injury clean with soap and water. Follow-up with your primary care provider for results of the protocol testing.
[2025-07-13 14:55] VITALS: TEMP 97.3
[2025-07-13 15:07] VITALS: BP 139/100; PULSE 86; RESP 20; O2SAT 100
[2025-07-13 15:20] LABS: HIV 1/2 ANTIBODY PRESUMPTIVE NEGATIVE (NEGATIVE); HIV p24 AG - SOURCE ONLY PRESUMPTIVE NEGATIVE (NEGATIVE)
== END 2025-07-13 15:50 | disposition home or self-care (01) ==
LOC: ED 13:34
DX: S61.032A Puncture wound without foreign body of left thumb without damage to nail, initial encounter (principal); W46.0XXA Contact with hypodermic needle, initial encounter; Y99.0 Civilian activity done for income or pay; I10 Essential (primary) hypertension; Z79.899 Other long term (current) drug therapy
CPT/HCPCS: 36415; 86689; 87340; 87389; 99283; G0472